=== PATIENT | male | born 1985 | race Caucasian/White ===

== ENCOUNTER 2022-08-16 20:17 | Emergency (ER) | payer SELFPAY ==
[2022-08-16 21:35] LABS: HEMOGLOBIN 11.2 gm/dl (14.0-17.5); RED BLOOD COUNT 4.62 M/UL (4.20-5.50)
[2022-08-16 21:52] LABS: BUN/CREATININE RATIO 7 (0-10)
[2022-08-17] MEDS ORDERED: LIBRIUM CAP 2525 MG PO (09:47)
== END 2022-08-17 12:05 | disposition home or self-care (01) ==
LOC: ER1 20:17
PROVIDERS: Physician Assistant
DX: F10.129 Alcohol abuse with intoxication, unspecified (principal); Z94.4 Liver transplant status; E11.9 Type 2 diabetes mellitus without complications
CPT/HCPCS: 71045; 80053; 80307; 81001; 83690; 85025; 93005; 99284; G0480